=== PATIENT | male | born 1990 | race Caucasian/White ===

== ENCOUNTER 2019-06-13 15:54 | Emergency (ER) | payer MEDICAID, OTHER ==
[~2019-06-13] VITALS: Ht 188 cm; Wt 95.5 kg
[2019-06-13] MEDS ORDERED: AMOX500C2 PO (17:07)
[2019-06-13 17:22] VITALS: BP 154/80
== END 2019-06-13 17:23 | disposition home or self-care (01) ==
LOC: ER 15:55
DX: J32.9 Chronic sinusitis, unspecified (principal); H57.89 Other specified disorders of eye and adnexa; Z79.899 Other long term (current) drug therapy
CPT/HCPCS: 99283